=== PATIENT | female | born 1945 | race Caucasian/White ===

== ENCOUNTER → 2017-08-02 | Day surgery (SDC) | payer BC ==
[~2017-08-02] VITALS: Ht 165.1 cm; Wt 51.1 kg
[~2017-08-02] MED LIST: *morphine SULFATE 8 MG/ML PERIprocedure ONLY ONE; ACETAMINOPHEN 1000 MG/100 ML 100 ML IV ONE; BUPIVACAINE/EPINEPHRINE 0.25% 50 ML VIAL ONE; BUPIVACAINE/EPINEPHRINE 0.5% 50 ML VIAL ONE; CALTCHW5 PO; CHLORHEXIDINE GLUCONATE 2 % 1 PACK (2 CLOTHS) TOPICAL PRN; DEXAMETHASONE SOD PHOS 4 MG/ML VIAL ONE; DO NOT ADM ANY ANTICOAGULANT DRUGS PRN; ESTR1 PO; FAMOTIDINE 20 MG/2 ML VIAL ONE; INSULIN HUMAN REGULAR 1,000 UNITS/10 ML VIAL SQ PRN; KETOROLAC TROMETHAMINE 60 MG/2 ML (IM) VIAL IM ONE; LACTATED RINGER'S 1000 ML IV PRN; LEVO50TA4 PO; METOPROLOL TARTRATE 25 MG TAB PO PRN; MIDAZOLAM HCL 2 MG/2 ML VIAL ONE; MULT-65 PO; NEOSTIGMINE 3 MG/3 ML SYR IV ONE; ONDANSETRON HCL 4 MG/2 ML VIAL IV PUSH ONE; PERC5TAB12 PO; POVIDONE IODINE 5% (ANTISEPSIS KIT) 4 APPLICATIONS EACH NARE PRN; PROG100C PO; PROPOFOL 200 MG/20 ML AMP IV ONE; SODIUM CHLORID 0.9% 500 ML IV PRN; VITA1000 PO
[2017-08-02 06:45] LABS: AUTOMATED NEUTROPHIL # 3.7 TH/MM3 (1.8-7.7); BASOPHIL # 0.1 TH/MM3 (0-0.2); BASOPHIL % 0.9 % (0.0-2.0); EOSINOPHIL # 0.1 TH/MM3 (0-0.4); EOSINOPHIL % 1.8 % (0.0-4.0); HEMATOCRIT 38.8 % (35.0-46.0); HEMO FLAGS DIFF FINAL; LYMPH % 24.3 % (9.0-44.0); LYMPHOCYTE # 1.4 TH/MM3 (1.0-4.8); MEAN CELL VOLUME 91.1 FL (80.0-100.0); MEAN CORPUSCULAR HEMOGLOBIN 29.9 PG (27.0-34.0); MEAN CORPUSCULAR HGB CONC 32.8 % (32.0-36.0); MONO % 7.8 % (0.0-8.0); NEUT % 65.2 % (16.0-70.0); PLATELET COUNT 216 TH/MM3 (150-450); RED BLOOD COUNT 4.26 MIL/MM3 (4.00-5.30); WHITE BLOOD COUNT 5.7 TH/MM3 (4.0-11.0)
[2017-08-02 07:00] LABS: ALT (GPT) 25 U/L (10-53); ANION GAP 6 MEQ/L (5-15); AST (GOT) 21 U/L (15-37); BICARBONATE 29.2 MEQ/L (21.0-32.0); BLOOD UREA NITROGEN 11 MG/DL (7-18); CHLORIDE 106 MEQ/L (98-107); GLOMERULAR FILTRATION RATE 77 ML/MIN (>89); POTASSIUM 4.2 MEQ/L (3.5-5.1); SODIUM (NA) 141 MEQ/L (136-145)
[2017-08-02 07:02] LABS: ALKALINE PHOSPHATASE 58 U/L (45-117); TOTAL BILIRUBIN ADULT 0.5 MG/DL (0.2-1.0)
--- NOTE | 2017-08-02 08:54 | PD.OP ---
Operative Report Date of Surgery: Aug 02, 2017 Preoperative Diagnosis: (1) Adnexal mass Postoperative Diagnosis: (1) Adnexal mass Procedure: BSO Anesthesia: general Surgeon: Misha Fontenot Cbx Operator(s): Misha Mitchell MD Aug 02, 2017 08:54
--- NOTE | 2017-08-02 09:00 | HHI.DCPOC ---
Discharge Care Plan Diagnosis: (1) Adnexal mass Report Symptoms to Your Doctor -Temperature above 100.5 degrees -Redness, of incision or excessive or foul smelling drainage -Unusual pain or calf pain -Increased vaginal bleeding -Painful or difficulty urinating -Feelings of extreme sadness or anxiety after 2 weeks Goals to Promote Your Health * To prevent worsening of your condition and complications * To maintain your health at the optimal level Directions to Meet Your Goals Take your medications as prescribed Follow your dietary instruction Follow activity as directed Ensure plenty of rest for recovery Drink fluids for hydration Keep your appointments as scheduled Take your immunizations and boosters as scheduled If your symptoms worsen call your PCP, if no PCP go to Urgent Care Center or Emergency Room Smoking is Dangerous to Your Health. Avoid second hand smoke Call the 24-hour crisis hotline for domestic abuse at Misha Fontenot MD Aug 02, 2017 09:00
[2017-08-02 09:45] VITALS: BP 143/72; PULSE 57; RESP 16; TEMP 97.5; O2SAT 99
--- NOTE | 2017-08-02 14:19 | EKG ---
Date Performed: 08/02/2017 Time Performed: 06:35:05 PTAGE: 72 years EKG: SINUS BRADYCARDIA MINIMAL VOLTAGE CRITERIA FOR LVH, CONSIDER NORMAL VARIANT BORDERLINE ECG NO PREVIOUS TRACING DOCTOR: Alonso Ferrara Interpretating Date/Time 08/02/2017 14:14:01
--- NOTE | 2017-08-03 08:23 | MP ---
cc: JENISE FONTENOT DATE OF SURGERY 08/02/2017 PROCEDURE Operative laparoscopy, bilateral salpingo-oophorectomy. PREOPERATIVE DIAGNOSIS Left adnexal mass POSTOPERATIVE DIAGNOSIS Left adnexal mass SURGEON Dr. Jenise Fontenot ESTIMATED BLOOD LOSS 10 cc COMPLICATIONS None FINDINGS A large left solid ovarian mass. Normal right ovary and fallopian tube. ANESTHESIA General, Dr. Matute PROCEDURE IN DETAIL After informed consent, the patient taken tot he operating room where she was placed under general anesthesia and placed in the supine position. The bladder was drained with a red Euceda catheter. The abdomen, perineum and vagina were prepped and draped in a normal sterile fashion. After adequate anesthesia, and a time-out was taken, a 5 mm infraumbilical incision was made after injection with 0.25% Marcaine with epinephrine. We entered the abdomen under direct visualization. A suprapubic 10 mm trocar and a left lower quadrant 5 mm trocars were placed. The patient was placed in Trendelenburg. The left ovary was noted to be adherent to the pelvic sidewall. The bowel had some filmy adhesions to the cul-de-sac. All these were taken down the Harmonic scalpel. The right fallopian tube and ovary were normal. They were atrophic in a 71-year-old patient. These were taken at the infundibulopelvic ligament with the Harmonic scalpel and dissected away from the pelvic sidewall. Good visualization of the ureter on the right was seen. We removed the ovary. This came through the 10 mm trocar without a bag and was normal. The left ovary was dissected off the pelvic sidewall and the bowel carefully with the harmonic scalpel. Blood vessels were taken, good hemostasis achieved in all areas. The ovary was placed in an EndoCatch. We pulled the EndoCatch through the umbilical wall. The incision had to be extended secondary to the solid nature of this. I removed the adnexal mass which was an ovary which was solid, probably benign. We then closed the fascia with 2-0 Vicryl suture and the skin with a subcuticular stitch. The abdomen was reinsufflated. The upper abdomen and lower abdomen were normal now. There was no active bleeding. All pedicles were noted to be hemostatic and all instruments were removed from the abdomen along with CO2. The 5 mm trocars were closed with a simple stitch. The patient tolerated the procedure well. She was taken to the recovery room in stable condition. MD KENNY Sanders/ASHA /8:55 AM /8:08 AM
== END | disposition home or self-care (01) ==
LOC: HSDC 05:32
PROVIDERS: ATTEND Obstetrics & Gynecology
DX: D27.1 Benign neoplasm of left ovary (principal); N83.201 Unspecified ovarian cyst, right side; N83.8 Other noninflammatory disorders of ovary, fallopian tube and broad ligament; E03.9 Hypothyroidism, unspecified; Z79.899 Other long term (current) drug therapy
CPT/HCPCS: 00840; 58661; 80053; 85025; 86850; 86900; 86901; 88305; 88307; 93005; J0131; J1100; J1885; J2250; J2270; J2405; J2710; J3010; J7120